=== PATIENT | female | born 1990 | race Caucasian/White ===

== ENCOUNTER 2017-04-30 19:49 | Emergency (ER) | payer OTHER ==
[2017-04-30 20:17] VITALS: BP 111/75; PULSE 63; TEMP 98; BMI 31.3
--- NOTE | 2017-04-30 20:35 | PDOC ---
History of Present Illness - General History Source: Patient Exam Limitations: No Limitations - History of Present Illness Initial Comments: 04/30/17 20:53 The patient is a 27-year-old female, with no significant past medical history, who presents to the ED with nausea and vomiting that began at 2PM today. The pt states that she ate a meal at 10 AM and began experiencing episodes of vomiting a few hours later. She tried to drink some tea and was not able to keep that down. She also reports having diarrhea now. Last menstrual period was on 04/18. The patient denies any fever, chills, or abdominal pain. <Minnie Parekh - Last Filed: 04/30/17 20:52> <Felisa Mcdonnell - Last Filed: 05/01/17 00:19> - General Chief Complaint: Nausea/Vomiting Stated Complaint: VOMITING Time Seen by Provider: 04/30/17 20:26 Past History <Minnie Parekh - Last Filed: 04/30/17 20:52> - Past Medical History Other medical history: Pt denies - Psycho/Social/Smoking Cessation Hx Suicidal Ideation: No Smoking History: Never smoked Hx Alcohol Use: No Drug/Substance Use Hx: No Substance Use Type: None <Felisa Mcdonnell - Last Filed: 05/01/17 00:19> - Past Medical History Allergies/Adverse Reactions: Allergies Allergy/AdvReac Type Severity Reaction Status Date / Time No Known Allergies Allergy Verified 04/30/17 20:13 Home Medications: Ambulatory Orders NK [No Known Home Medication] 04/30/17 Review of Systems - Review of Systems Able to Perform ROS?: Yes Comments:: 04/30/17 20:53 GENERAL/CONSTITUTIONAL: No fever or chills. No weakness. HEAD, EYES, EARS, NOSE AND THROAT: No change in vision. No ear pain or discharge. No sore throat. CARDIOVASCULAR: No chest pain or shortness of breath. RESPIRATORY: No cough, wheezing, or hemoptysis. GASTROINTESTINAL: No constipation. +nausea, vomiting, diarrhea GENITOURINARY: No dysuria, frequency, or change in urination. MUSCULOSKELETAL: No joint or muscle swelling or pain. No neck or back pain. SKIN: No rash NEUROLOGIC: No headache, vertigo, loss of consciousness, or change in strength/ sensation. ENDOCRINE: No increased thirst. No abnormal weight change. HEMATOLOGIC/LYMPHATIC: No anemia, easy bleeding, or history of blood clots. ALLERGIC/IMMUNOLOGIC: No hives or skin allergy. <Minnie Parekh - Last Filed: 04/30/17 20:52> *Physical Exam - Vital Signs Last Vital Signs Temp Pulse Resp BP Pulse Ox 98.0 F 63 18 111/75 100 04/30/17 20:14 04/30/17 20:14 04/30/17 20:14 04/30/17 20:14 04/30/17 20:14 - Physical Exam Comments: 04/30/17 20:54 GENERAL: Awake, alert, and fully oriented, in no acute distress HEAD: No signs of trauma ENT: Auricles normal inspection, hearing grossly normal, nares patent, oropharynx clear EYES: PERRLA, EOMI, sclera anicteric, conjunctiva clear without exudates. Moist mucosa. NECK: Normal ROM, supple, no lymphadenopathy, JVD, or masses LUNGS: Breath sounds equal, clear to auscultation bilaterally. No wheezes, and no crackles HEART: Regular rate and rhythm, normal S1 and S2, no murmurs, rubs or gallops ABDOMEN: Soft, nontender, normoactive bowel sounds. No guarding, no rebound. No masses EXTREMITIES: Normal range of motion, no edema. No clubbing or cyanosis. No cords, erythema, or tenderness NEUROLOGICAL: Cranial nerves II through XII grossly intact. Normal speech, normal gait SKIN: Warm, Dry, normal turgor, no rashes or lesions noted <Minnie Parekh - Last Filed: 04/30/17 20:52> - Vital Signs Last Vital Signs Temp Pulse Resp BP Pulse Ox 98.0 F 63 18 111/75 100 04/30/17 20:14 04/30/17 20:14 04/30/17 20:14 04/30/17 20:14 04/30/17 20:14 <Felisa Mcdonnell - Last Filed: 05/01/17 00:19> ED Treatment Course - LABORATORY CBC & Chemistry Diagram: 04/30/17 20:45 04/30/17 20:45 <Felisa Mcdonnell - Last Filed: 05/01/17 00:19> Medical Decision Making - Medical Decision Making 05/01/17 00:17 Pt has diarrhea and vomiting, and likely viral gastroenteritis vs food poisoning. No fever and no chills. Pt comes with complaint of burning in chest. Pt hydrated, pepcid, maaloc and bentyl given. Pt feeling better in the ER. Pt stable for discharge home. Tyleol given for a slight headache. Labs and exam normal. No abd or flank pain with palpation. <Felisa Mcdonnlel - Last Filed: 05/01/17 00:19> *DC/Admit/Observation/Transfer - Attestations Scribe Attestion: 04/30/17 20:57 Documentation prepared by Minnie Parekh, acting as hospitalist medical director for Felisa Mcdonnell MD. <Minnie Parekh - Last Filed: 04/30/17 20:52> - Discharge Dispostion Admit: No <Felisa Mcdonnell - Last Filed: 05/01/17 00:19> Diagnosis at time of Disposition: Viral gastroenteritis - Discharge Dispostion Disposition: HOME Condition at time of disposition: Improved - Patient Instructions Printed Discharge Instructions: DI for Viral Gastroenteritis -- Adult - Post Discharge Activity Work/School Note: Back to Work
[2017-04-30] MEDS ORDERED: SODIUM CHLORIDE 0.9% 500 ML INFUS.BAG IV ONE (20:37)
[2017-04-30] MEDS ORDERED: FAMOTIDINE 20 MG/50 ML IVPB 50 ML IVPB ONE ×2 (20:37→20:57)
[2017-04-30 21:45] LABS: BASOPHIL 0.5 % (0-2.0); EOSINOPHIL 0.2 % (0-4.5); MCH 27.9 pg (25.7-33.7); MCHC 32.4 g/dl (32.0-36.0); MEAN CELL VOLUME 85.9 fl (80-96); NEUTROPHILS 79.4 % (42.8-82.8); PLATELET COUNT 271 K/MM3 (134-434); RDW 13.5 % (11.6-15.6); WHITE BLOOD COUNT 8.2 K/mm3 (4.0-10.0)
[2017-04-30 21:57] LABS: URINE APPEARANCE SLCLOUDY; URINE BILIRUBIN NEGATIVE (NEGATIVE); URINE BLOOD NEGATIVE (NEGATIVE); URINE COLOR YELLOW; URINE GLUCOSE (UA) NEGATIVE (NEGATIVE); URINE KETONE NEGATIVE (NEGATIVE); URINE LEUK ESTERASE NEGATIVE (NEGATIVE); URINE NITRITE NEGATIVE (NEGATIVE); URINE PROTEIN NEGATIVE (NEGATIVE); URINE UROBILINOGEN NEGATIVE E.U./dl (0.2-1.0)
[2017-04-30 22:15] LABS: ALBUMIN 4.3 g/dl (3.4-5.0); ANION GAP 10 (8-16); CALCIUM 9.2 mg/dL (8.5-10.1); CO2 25 mmol/L (21-32); COCKROFT - GAULT 190.9015; CREATININE 0.5 mg/dL (0.55-1.02); GLUCOSE,RANDOM 94 mg/dL (74-106); SGPT/ALT 52 U/L (12-78)
[2017-04-30 22:17] LABS: ALK PHOS 85 U/L (45-117); BILIRUBIN,TOTAL 0.5 mg/dL (0.2-1.0); TOT PROT 7.8 g/dl (6.4-8.2)
[2017-04-30 22:18] LABS: SGOT/AST 39 U/L (15-37)
[2017-04-30] MEDS ORDERED: ACETAMINOPHEN 325 MG TABLET (FP) PO ONE (22:38)
[2017-04-30] MEDS ORDERED: MAG HYDROX/AL HYDROX/SIMETH 30 ML UNIT-DOSE CUP PO ONE (22:38)
[2017-04-30] MEDS ORDERED: DICYCLOMINE HCL 20 MG TABLET PO ONE (22:38)
[2017-04-30] MEDS ORDERED: ACETAMINOPHEN 325 MG TABLET (FP) ONE (22:42)
[2017-04-30] MEDS ORDERED: MAG HYDROX/AL HYDROX/SIMETH 30 ML UNIT-DOSE CUP ONE (22:42)
[2017-04-30] MEDS ORDERED: DICYCLOMINE HCL 10 MG CAPSULE ONE (22:42)
== END 2017-04-30 22:45 | disposition home or self-care (01) ==
LOC: JER 19:49
PROC: 3E033GC Introduction of Other Therapeutic Substance into Peripheral Vein, Percutaneous Approach (ICD-10-PCS; principal; 2017-04-30)
DX: A08.4 Viral intestinal infection, unspecified (principal); B97.89 Other viral agents as the cause of diseases classified elsewhere
CPT/HCPCS: 36415; 80053; 81003; 84703; 85025; 96365; 99283-25